=== PATIENT | male | born 1935 | race Caucasian/White ===

== ENCOUNTER 2018-02-04 09:53 | Inpatient (IN) ==
[2018-02-04] MEDS ORDERED: SODIUM CHLORIDE 0.9% 1,000 ML IV STA (10:31)
[2018-02-04] MEDS ORDERED: LORazepam 2 MG/1 ML VIAL IV STA (10:34)
[2018-02-04 11:08] LABS: Basophils # 0.1 10*3/uL (0.0-0.2); Basophils % 0.8 % (0.0-0.8); Eosinophils # 0.1 10*3/uL (0.0-0.87); Eosinophils % 0.4 % (0.00-10.9); Hematocrit 40.7 VOL% (42.0-52.0); Hemoglobin 11.6 GM/DL (14.0-18.0); Immature Granulocytes % 0.7 %; Immature Granulocytes Absolute 0.08 #; Lymphocytes # 1.6 10*3/uL (1.4-4.0); Lymphocytes % 13.8 % (21.2-54.2); Mean Corpuscular HGB Conc 28.5 GM/DL (32-36); Mean Corpuscular Hemoglobin 22 PG (27-34); Mean Platelet Volume 10.3 FL (9.6-12.0); Neutrophils # 8.7 10*3/uL (1.4-7.4); Neutrophils % 75.3 % (38.7-73.9); Platelet Count 344 T/CUMM (130-400); Red Blood Count 5.22 MC/CUMM (3.8-5.5); Red Cell Distribution Width 17.1 % (9.3-17.3); White Blood Count 11.5 T/CUMM (4-12)
[2018-02-04 11:25] LABS: Albumin 3.5 G/DL (3.4-5.0); Bilirubin,Total 0.4 MG/DL (0.2-1.0); Calcium 8.1 MG/DL (8.5-10.1); Osmolality,Calculated 286.8 MOS/KG (273-304); Potassium 3.9 MMOL/L (3.5-5.1); Total Protein 6.8 G/DL (6.4-8.3)
[2018-02-04 11:27] LABS: Apearance,Urine CLEAR (Clear); Bilirubin,Urine Negative (Negative); Blood, Urine Negative (Negative); Glucose,Urine (UA) Negative (Negative); Hyaline Casts,Urine 4 /LPF (0-3); Ketones,Urine Negative (Negative); Mucus,Urine Occasional /LPF (Occasional); Nitrite,Urine Negative (Negative); Protein,Urine Negative; RBC,Urine 2 /HPF (0-4); Urine Color Yellow (Yellow); Urine Specific Gravity 1.016 (1.001-1.035); Urine Urobilinogen < 2.0 EU/DL (0.2-1.0); WBC,Urine 1 /HPF (0-6)
[2018-02-04 11:51] LABS: Elliptocytes Few
[2018-02-04 11:52] LABS: Hypochromasia Slight; Microcytosis Slight; Platelet Estimate Adequate
[2018-02-04] MEDS ORDERED: HALOPERIDOL 5 MG/ML AMP IV PRN (13:28)
[2018-02-04] MEDS ORDERED: levETIRAcetam 500 MG TABLET PO SCH (13:30)
[2018-02-04] MEDS ORDERED: GLUCAGON 1 MG VIAL IM PRN (13:33)
[2018-02-04] MEDS ORDERED: DEXTROSE 50% 25 GM/50 ML VIAL IV PRN (13:33)
[2018-02-04] MEDS: SODIUM CHLORIDE 0.9% 1,000 ML IV SCH (15:30)
[2018-02-04 15:55] LABS: Calcium 7.9 MG/DL (8.5-10.1); Osmolality,Calculated 287.7 MOS/KG (273-304); Potassium 3.9 MMOL/L (3.5-5.1)
[2018-02-04] MEDS: INSULIN LISPRO 100 UNIT/ML SUBCUT SCH ×2 (16:31→21:55)
[2018-02-04] MEDS: LORazepam 2 MG/1 ML VIAL IV PRN (16:33)
[2018-02-04] MEDS: ASPIRIN EC 81 MG TABLET PO SCH (16:35)
[2018-02-04] MEDS: ALBUTEROL/IPRATROPIUM 3 ML NEB RESP TX SCH (19:53)
[2018-02-04] MEDS ORDERED: Eslicarbazepine Acetate [Aptiom] 800 MG PO SCH (21:00)
[2018-02-04] MEDS: EZETIMIBE 10 MG TABLET PO SCH (21:55)
[2018-02-05] MEDS: ALBUTEROL/IPRATROPIUM 3 ML NEB RESP TX SCH ×4 (01:00→20:26)
[2018-02-05] MEDS: LORazepam 2 MG/1 ML VIAL IV PRN (01:36)
[2018-02-05 08:06] LABS: Basophils % 0.3 % (0.0-0.8); Eosinophils % 0.2 % (0.00-10.9); Hematocrit 39.7 VOL% (42.0-52.0); Immature Granulocytes % 0.8 %; Lymphocytes # 1.5 10*3/uL (1.4-4.0); Lymphocytes % 12.2 % (21.2-54.2); Mean Corpuscular Hemoglobin 23 PG (27-34); Mean Corpuscular Volume 78.8 FL (87-102); Mean Platelet Volume 10.1 FL (9.6-12.0); Monocytes # 1.3 10*3/uL (0.11-0.8); Monocytes % 10.6 % (1.7-12.7); Neutrophils # 9.1 10*3/uL (1.4-7.4); Neutrophils % 75.9 % (38.7-73.9); Platelet Count 319 T/CUMM (130-400); Red Blood Count 5.04 MC/CUMM (3.8-5.5); Red Cell Distribution Width 17.2 % (9.3-17.3)
[2018-02-05 08:10] LABS: Hemoglobin 11.5 GM/DL (14.0-18.0)
[2018-02-05] MEDS: SIMVASTATIN 20 MG TABLET PO SCH (09:35)
[2018-02-05] MEDS: MULTIVITAMIN (CENTRUM) TABLET PO SCH (09:35)
[2018-02-05] MEDS: CARVEDILOL 3.125 MG TABLET PO SCH (09:35)
[2018-02-05] MEDS: INSULIN LISPRO 100 UNIT/ML SUBCUT SCH ×4 (09:36→21:10)
[2018-02-05] MEDS: CLOPIDOGREL 75 MG TABLET PO SCH (09:36)
[2018-02-05] MEDS: VALSARTAN 160 MG TABLET PO SCH (09:36)
[2018-02-05] MEDS: SODIUM CHLORIDE 0.9% 1,000 ML IV SCH (09:43)
[2018-02-05 11:00] LABS: Folate 22.7 NG/ML (5.4-24.0)
[2018-02-05] MEDS ORDERED: TUBERCULIN SKIN TEST 0.1 ML SYRINGE INTRADERM ONE (15:17)
[2018-02-05] MEDS: amLODIPine 5 MG TABLET PO SCH (16:09)
[2018-02-05] MEDS: levETIRAcetam 250 MG TABLET PO SCH (21:09)
[2018-02-05] MEDS: EZETIMIBE 10 MG TABLET PO SCH (21:09)
[2018-02-06] MEDS: ALBUTEROL/IPRATROPIUM 3 ML NEB RESP TX SCH ×3 (01:09→13:25)
[2018-02-06] MEDS ORDERED: BISACODYL 10 MG SUPP RECTAL ONE (02:48)
[2018-02-06] MEDS ORDERED: LACTULOSE 20 GM/30 ML UDCUP PO PRN (02:49)
[2018-02-06] MEDS ORDERED: MAGNESIUM SULF RIDER 1 GM in PREMIX 1 EACH IV ONE (05:03)
[2018-02-06] MEDS ORDERED: AMIODARONE 150 MG/3 ML VIAL IV ONE (08:00)
[2018-02-06] MEDS: INSULIN LISPRO 100 UNIT/ML SUBCUT SCH ×4 (08:22→21:31)
[2018-02-06] MEDS: VALSARTAN 160 MG TABLET PO SCH (09:52)
[2018-02-06] MEDS: amLODIPine 5 MG TABLET PO SCH ×2 (09:52→21:31)
[2018-02-06] MEDS: MULTIVITAMIN (CENTRUM) TABLET PO SCH (09:52)
[2018-02-06] MEDS: CLOPIDOGREL 75 MG TABLET PO SCH (09:52)
[2018-02-06] MEDS: levETIRAcetam 250 MG TABLET PO SCH ×2 (09:52→21:31)
[2018-02-06] MEDS: CARVEDILOL 3.125 MG TABLET PO SCH (09:53)
[2018-02-06] MEDS: SIMVASTATIN 20 MG TABLET PO SCH (09:53)
[2018-02-06] MEDS: ASPIRIN EC 81 MG TABLET PO SCH (09:53)
[2018-02-06 13:41] LABS: Calcium 8.7 MG/DL (8.5-10.1); Potassium 4.3 MMOL/L (3.5-5.1)
[2018-02-06 13:43] LABS: Basophils # 0.1 10*3/uL (0.0-0.2); Basophils % 0.3 % (0.0-0.8); Eosinophils % 0.1 % (0.00-10.9); Hematocrit 43.5 VOL% (42.0-52.0); Hemoglobin 12.5 GM/DL (14.0-18.0); Immature Granulocytes % 0.8 %; Immature Granulocytes Absolute 0.19 #; Lymphocytes # 0.9 10*3/uL (1.4-4.0); Lymphocytes % 3.8 % (21.2-54.2); Mean Corpuscular HGB Conc 28.7 GM/DL (32-36); Mean Corpuscular Hemoglobin 23 PG (27-34); Mean Corpuscular Volume 79.4 FL (87-102); Monocytes # 1.4 10*3/uL (0.11-0.8); Monocytes % 6.2 % (1.7-12.7); Neutrophils # 20.5 10*3/uL (1.4-7.4); Neutrophils % 88.8 % (38.7-73.9); Platelet Count 342 T/CUMM (130-400); Red Blood Count 5.48 MC/CUMM (3.8-5.5); Red Cell Distribution Width 17.5 % (9.3-17.3); White Blood Count 23.1 T/CUMM (4-12)
[2018-02-06 17:42] LABS: Band Neutrophils 9 % (0-10); Lymphocytes 2 % (20-55); Segmented Neutrophils 78 % (50-85); Total Cells Counted 100
[2018-02-06 17:44] LABS: Anisocytosis 1+; Hypochromasia 1+; Ovalocytes Few; Poikilocytosis 1+; Polychromasia Slight
[2018-02-06 17:45] LABS: Platelet Estimate Increased; Stomatocytes Few
[2018-02-06] MEDS ORDERED: ALBUTEROL 2.5 MG/3 ML NEB RESP TX SCH (19:00)
[2018-02-06] MEDS: LEVALBUTEROL 1.25 MG/3 ML NEB RESP TX SCH (19:29)
[2018-02-06] MEDS ORDERED: CARVEDILOL 3.125 MG TABLET PO SCH (21:00)
[2018-02-06] MEDS: CARVEDILOL 6.25 MG TABLET PO SCH (21:31)
[2018-02-06] MEDS: EZETIMIBE 10 MG TABLET PO SCH (21:32)
[2018-02-07] MEDS: LEVALBUTEROL 1.25 MG/3 ML NEB RESP TX SCH ×4 (01:16→19:15)
[2018-02-07 05:11] LABS: Basophils # 0.1 10*3/uL (0.0-0.2); Basophils % 0.4 % (0.0-0.8); Eosinophils # 0.3 10*3/uL (0.0-0.87); Immature Granulocytes % 0.4 %; Immature Granulocytes Absolute 0.07 #; Lymphocytes # 1.3 10*3/uL (1.4-4.0); Lymphocytes % 7.8 % (21.2-54.2); Mean Corpuscular HGB Conc 29.1 GM/DL (32-36); Mean Corpuscular Hemoglobin 23 PG (27-34); Mean Corpuscular Volume 77.8 FL (87-102); Mean Platelet Volume 10.9 FL (9.6-12.0); Monocytes # 1.3 10*3/uL (0.11-0.8); Monocytes % 8.2 % (1.7-12.7); Neutrophils # 13.2 10*3/uL (1.4-7.4); Neutrophils % 81.2 % (38.7-73.9); Platelet Count 283 T/CUMM (130-400); Red Blood Count 4.51 MC/CUMM (3.8-5.5); Red Cell Distribution Width 17.2 % (9.3-17.3); White Blood Count 16.2 T/CUMM (4-12)
[2018-02-07 05:21] LABS: Hemoglobin 10.4 GM/DL (14.0-18.0)
[2018-02-07 05:28] LABS: Calcium 8.3 MG/DL (8.5-10.1); Potassium 3.7 MMOL/L (3.5-5.1)
[2018-02-07] MEDS: MULTIVITAMIN (CENTRUM) TABLET PO SCH (09:21)
[2018-02-07] MEDS: amLODIPine 5 MG TABLET PO SCH ×2 (09:21→20:45)
[2018-02-07] MEDS: levETIRAcetam 250 MG TABLET PO SCH ×2 (09:22→20:45)
[2018-02-07] MEDS: CARVEDILOL 6.25 MG TABLET PO SCH (09:23)
[2018-02-07] MEDS: SIMVASTATIN 20 MG TABLET PO SCH (09:23)
[2018-02-07] MEDS: CLOPIDOGREL 75 MG TABLET PO SCH (09:23)
[2018-02-07] MEDS: VALSARTAN 160 MG TABLET PO SCH (09:25)
[2018-02-07] MEDS: ASPIRIN EC 81 MG TABLET PO SCH (09:25)
[2018-02-07] MEDS: INSULIN LISPRO 100 UNIT/ML SUBCUT SCH ×4 (10:00→20:44)
[2018-02-07] MEDS: CARVEDILOL 12.5 MG TABLET PO SCH ×2 (10:54→20:43)
[2018-02-07] MEDS ORDERED: ENOXAPARIN 40 MG/0.4 ML SYRINGE SUBCUT SCH (13:30)
[2018-02-07] MEDS: EZETIMIBE 10 MG TABLET PO SCH (20:46)
[2018-02-07] MEDS ORDERED: ATORVASTATIN 40 MG TABLET PO SCH (21:00)
[2018-02-08] MEDS: LEVALBUTEROL 1.25 MG/3 ML NEB RESP TX SCH ×2 (01:51→10:22)
[2018-02-08] MEDS: INSULIN LISPRO 100 UNIT/ML SUBCUT SCH ×2 (07:43→12:26)
[2018-02-08] MEDS: MULTIVITAMIN (CENTRUM) TABLET PO SCH (08:08)
[2018-02-08] MEDS: VALSARTAN 160 MG TABLET PO SCH (08:08)
[2018-02-08] MEDS: amLODIPine 5 MG TABLET PO SCH (08:09)
[2018-02-08] MEDS: ASPIRIN EC 81 MG TABLET PO SCH (08:09)
[2018-02-08] MEDS: CLOPIDOGREL 75 MG TABLET PO SCH (08:09)
[2018-02-08] MEDS: CARVEDILOL 12.5 MG TABLET PO SCH (08:09)
[2018-02-08] MEDS: levETIRAcetam 250 MG TABLET PO SCH (08:26)
[2018-02-08] MEDS ORDERED: ACETAMINOPHEN 325 MG TABLET PO ONE (11:24)
[2018-02-08 12:16] VITALS: BP 125/58
== END 2018-02-08 12:35 | DRG 100 ==
LOC: N.ED 09:53 → N.EDINP 12:36 → SUATTDRO 12:36 → N.EDINP 14:27 → N.4E 14:39 → N.TELES 02-06 07:43
PROVIDERS: ADMIT Internal Medicine; ATTEND Internal Medicine Infectious Disease

== ENCOUNTER 2018-10-17 00:32 | Inpatient (IN) ==
[2018-10-17 01:27] LABS: Basophils # 0.1 10*3/uL (0.0-0.2); Basophils % 0.8 % (0.0-0.8); Eosinophils # 0.2 10*3/uL (0.0-0.87); Eosinophils % 2.4 % (0.00-10.9); Immature Granulocytes % 0.8 %; Immature Granulocytes Absolute 0.07 #; Lymphocytes # 1.3 10*3/uL (1.4-4.0); Lymphocytes % 15.3 % (21.2-54.2); Mean Corpuscular HGB Conc 30.1 GM/DL (32-36); Mean Platelet Volume 10.2 FL (9.6-12.0); Neutrophils % 72.7 % (38.7-73.9); Platelet Count 268 T/CUMM (130-400); Red Blood Count 5.39 MC/CUMM (3.8-5.5); Red Cell Distribution Width 14.6 % (9.3-17.3); White Blood Count 8.8 T/CUMM (4-12)
[2018-10-17 01:34] LABS: Hematocrit 46.7 VOL% (42.0-52.0); Hemoglobin 14.1 GM/DL (14.0-18.0)
[2018-10-17 01:46] LABS: Calcium 8.5 MG/DL (8.5-10.1)
[2018-10-17] MEDS ORDERED: ACETAMINOPHEN 325 MG TABLET PO PRN (02:42)
[2018-10-17] MEDS ORDERED: ONDANSETRON 4 MG/2 ML VIAL IV PRN (02:42)
[2018-10-17] MEDS ORDERED: NICOTINE 21 MG/24 HR PATCH TRANSDERM PRN (02:42)
[2018-10-17] MEDS ORDERED: SODIUM CHLORIDE 0.9% 500 ML IV STA (03:58)
[2018-10-17 04:11] LABS: Apearance,Urine CLEAR (Clear); Bilirubin,Urine Negative (Negative); Blood, Urine Negative (Negative); Glucose,Urine (UA) Negative (Negative); Hyaline Casts,Urine 3 /LPF (0-3); Ketones,Urine Negative (Negative); Mucus,Urine Occasional /LPF (Occasional); Nitrite,Urine Negative (Negative); Protein,Urine Negative; RBC,Urine <1 /HPF (0-4); Urine Color Yellow (Yellow); Urine Specific Gravity 1.017 (1.001-1.035); Urine Urobilinogen < 2.0 EU/DL (0.2-1.0); WBC,Urine <1 /HPF (0-6)
[2018-10-17 04:11] LABS: Thyroid Stimulating Hormone 2.3 uIU/ml (0.358-3.74)
[2018-10-17] MEDS: SODIUM CHLORIDE 0.9% 1,000 ML IV SCH ×2 (04:25→17:50)
[2018-10-17] MEDS: CLINDAMYCIN 300 MG CAPSULE PO SCH ×4 (05:46→23:06)
[2018-10-17] MEDS ORDERED: DEXTROSE 50% 25 GM/50 ML VIAL IV PRN (05:56)
[2018-10-17] MEDS ORDERED: GLUCAGON 1 MG VIAL IM PRN (05:56)
[2018-10-17] MEDS ORDERED: LACOSAMIDE 50 MG TABLET PO SCH (09:00)
[2018-10-17] MEDS ORDERED: ESLICARBAZEPINE 800 MG PO SCH (09:00)
[2018-10-17] MEDS ORDERED: DIVALPROEX ER 500 MG TABLET PO SCH (09:00)
[2018-10-17] MEDS: INSULIN REGULAR 100 UNIT/ML SUBCUT SCH ×4 (09:41→20:42)
[2018-10-17] MEDS: CARBIDOPA/LEVODOPA 25-100 MG TABLET PO SCH ×3 (09:41→16:00)
[2018-10-17] MEDS: sitaGLIPtin 25 MG TABLET PO SCH (10:14)
[2018-10-17] MEDS: CITALOPRAM 20 MG TABLET PO SCH (10:15)
[2018-10-17] MEDS: ASPIRIN EC 81 MG TABLET PO SCH (10:15)
[2018-10-17] MEDS: FUROSEMIDE 20 MG TABLET PO SCH (10:15)
[2018-10-17] MEDS: CLOPIDOGREL 75 MG TABLET PO SCH (10:15)
[2018-10-17] MEDS: MULTIVITAMIN (CENTRUM) TABLET PO SCH (10:15)
[2018-10-17] MEDS: amLODIPine 5 MG TABLET PO SCH ×2 (10:15→20:38)
[2018-10-17] MEDS: CARVEDILOL 3.125 MG TABLET PO SCH (10:16)
[2018-10-17] MEDS: SIMVASTATIN 20 MG TABLET PO SCH (10:16)
[2018-10-17] MEDS: VALSARTAN 160 MG TABLET PO SCH (10:17)
[2018-10-17] MEDS ORDERED: DIVALPROEX ER 250 MG TABLET PO SCH (16:17)
[2018-10-17] MEDS: levETIRAcetam 500 MG TABLET PO SCH (20:39)
[2018-10-17] MEDS: DIVALPROEX 250 MG TABLET PO SCH (20:39)
[2018-10-17] MEDS ORDERED: EZETIMIBE 10 MG TABLET PO SCH (21:00)
[2018-10-18 05:04] LABS: Basophils # 0.1 10*3/uL (0.0-0.2); Basophils % 0.8 % (0.0-0.8); Eosinophils # 0.3 10*3/uL (0.0-0.87); Eosinophils % 4.2 % (0.00-10.9); Hemoglobin 12.9 GM/DL (14.0-18.0); Immature Granulocytes % 0.4 %; Immature Granulocytes Absolute 0.03 #; Lymphocytes # 2.5 10*3/uL (1.4-4.0); Lymphocytes % 31.9 % (21.2-54.2); Mean Corpuscular HGB Conc 30.7 GM/DL (32-36); Mean Corpuscular Volume 87.5 FL (87-102); Monocytes % 9.1 % (1.7-12.7); Neutrophils % 53.6 % (38.7-73.9); Platelet Count 226 T/CUMM (130-400); Red Cell Distribution Width 14.7 % (9.3-17.3); White Blood Count 7.9 T/CUMM (4-12)
[2018-10-18 05:15] LABS: Calcium 8.2 MG/DL (8.5-10.1); Osmolality,Calculated 288.7 MOS/KG (273-304)
[2018-10-18] MEDS: CLINDAMYCIN 300 MG CAPSULE PO SCH ×2 (06:10→12:45)
[2018-10-18] MEDS: CARBIDOPA/LEVODOPA 25-100 MG TABLET PO SCH ×2 (06:10→12:45)
[2018-10-18] MEDS: SODIUM CHLORIDE 0.9% 1,000 ML IV SCH (06:47)
[2018-10-18] MEDS: INSULIN REGULAR 100 UNIT/ML SUBCUT SCH ×2 (08:24→13:04)
[2018-10-18] MEDS: DIVALPROEX 250 MG TABLET PO SCH (11:14)
[2018-10-18] MEDS: ASPIRIN EC 81 MG TABLET PO SCH (11:14)
[2018-10-18] MEDS: MULTIVITAMIN (CENTRUM) TABLET PO SCH (11:14)
[2018-10-18] MEDS: sitaGLIPtin 25 MG TABLET PO SCH (11:14)
[2018-10-18] MEDS: CLOPIDOGREL 75 MG TABLET PO SCH (11:14)
[2018-10-18] MEDS: VALSARTAN 160 MG TABLET PO SCH (11:14)
[2018-10-18] MEDS: CARVEDILOL 3.125 MG TABLET PO SCH (11:14)
[2018-10-18] MEDS: FUROSEMIDE 20 MG TABLET PO SCH (11:15)
[2018-10-18] MEDS: amLODIPine 5 MG TABLET PO SCH (11:15)
[2018-10-18] MEDS: SIMVASTATIN 20 MG TABLET PO SCH (11:15)
[2018-10-18] MEDS: levETIRAcetam 500 MG TABLET PO SCH (11:15)
[2018-10-18] MEDS: CITALOPRAM 20 MG TABLET PO SCH (11:15)
[2018-10-18 16:17] VITALS: BP 129/63
== END 2018-10-18 16:42 | DRG 101 ==
LOC: EDUNIT# → EDBD → N.EDINP 00:32 → N.ED 00:32 → N.4E 03:47
PROVIDERS: ADMIT Family Medicine; ATTEND Family Medicine

== ENCOUNTER 2019-01-20 10:42 | Inpatient (IN) ==
[2019-01-20 11:48] LABS: Basophils % 0.3 % (0.0-0.8); Eosinophils # 0.1 10*3/uL (0.0-0.87); Eosinophils % 1.2 % (0.00-10.9); Hematocrit 41.3 VOL% (42.0-52.0); Hemoglobin 13.9 GM/DL (14.0-18.0); Immature Granulocytes % 0.5 %; Immature Granulocytes Absolute 0.05 #; Lymphocytes # 1.4 10*3/uL (1.4-4.0); Lymphocytes % 12.7 % (21.2-54.2); Mean Corpuscular HGB Conc 33.7 GM/DL (32-36); Mean Corpuscular Volume 84.8 FL (87-102); Mean Platelet Volume 9.3 FL (9.6-12.0); Monocytes % 7.3 % (1.7-12.7); Platelet Count 243 T/CUMM (130-400); Red Blood Count 4.87 MC/CUMM (3.8-5.5); Red Cell Distribution Width 13.3 % (9.3-17.3); White Blood Count 10.7 T/CUMM (4-12)
[2019-01-20 12:21] LABS: Alanine Aminotransferase 29 U/L (16-61); Albumin 3.5 G/DL (3.4-5.0); Alkaline Phosphatase 92 U/L (45-117); Aspartate Amino Transferase 42 U/L (0-37); Blood Urea Nitrogen 16 MG/DL (7-18); Calcium 8.4 MG/DL (8.5-10.1); Estimated Glom Filtration Rate 87 ML/MIN; Glucose 133 MG/DL (74-106); Osmolality,Calculated 255.4 MOS/KG (273-304); Total Protein 6.9 G/DL (6.4-8.3); Troponin I < 0.015 NG/ML (0.00-0.045)
[2019-01-20] MEDS ORDERED: ORPHENADRINE 60 MG/2 ML VIAL IV STA (12:53)
[2019-01-20 13:31] LABS: Apearance,Urine CLEAR (Clear); Bilirubin,Urine Negative (Negative); Blood, Urine Negative (Negative); Glucose,Urine (UA) Negative (Negative); Ketones,Urine Negative (Negative); Mucus,Urine Occasional /LPF (Occasional); Nitrite,Urine Negative (Negative); Protein,Urine Negative; RBC,Urine 2 /HPF (0-4); Urine Color Yellow (Yellow); Urine Specific Gravity 1.012 (1.001-1.035); Urine Urobilinogen < 2.0 EU/DL (0.2-1.0); WBC,Urine <1 /HPF (0-6)
[2019-01-20] MEDS ORDERED: ONDANSETRON 4 MG/2 ML VIAL IV PRN (13:58)
[2019-01-20] MEDS ORDERED: BISACODYL 5 MG TABLET PO PRN (13:58)
[2019-01-20] MEDS ORDERED: ACETAMINOPHEN 325 MG TABLET PO PRN (13:58)
[2019-01-20] MEDS ORDERED: LORazepam 2 MG/1 ML VIAL IV PRN (14:03)
[2019-01-20] MEDS ORDERED: DEXTROSE 50% 25 GM/50 ML VIAL IV PRN (14:04)
[2019-01-20] MEDS ORDERED: GLUCAGON 1 MG VIAL IM PRN (14:04)
[2019-01-20] MEDS ORDERED: ALBUTEROL/IPRATROPIUM 3 ML NEB RESP TX SCH (14:30)
[2019-01-20 14:31] LABS: Risk Ratio 2.8; Thyroid Stimulating Hormone 1.29 uIU/ml (0.358-3.74)
[2019-01-20] MEDS: INSULIN REGULAR 100 UNIT/ML SUBCUT SCH ×2 (17:10→21:42)
[2019-01-20] MEDS: SODIUM CHLORIDE 0.9% 1,000 ML IV SCH (18:05)
[2019-01-20] MEDS: OLANZapine 2.5 MG TABLET PO SCH ×2 (18:05→21:42)
[2019-01-20] MEDS: ALBUTEROL/IPRATROPIUM 3 ML NEB RESP TX SCH (19:25)
[2019-01-20] MEDS ORDERED: EZETIMIBE 10 MG TABLET PO SCH (21:00)
[2019-01-20] MEDS: ENOXAPARIN 40 MG/0.4 ML SYRINGE SUBCUT SCH (21:41)
[2019-01-20] MEDS: levETIRAcetam 500 MG TABLET PO SCH (21:41)
[2019-01-21] MEDS: ALBUTEROL/IPRATROPIUM 3 ML NEB RESP TX SCH ×4 (01:22→19:57)
[2019-01-21 05:59] LABS: Calcium 8.3 MG/DL (8.5-10.1); Osmolality,Calculated 260.8 MOS/KG (273-304)
[2019-01-21 07:52] LABS: Basophils % 0.2 % (0.0-0.8); Eosinophils # 0.2 10*3/uL (0.0-0.87); Eosinophils % 1.7 % (0.00-10.9); Hematocrit 39.4 VOL% (42.0-52.0); Hemoglobin 13.3 GM/DL (14.0-18.0); Immature Granulocytes % 0.7 %; Immature Granulocytes Absolute 0.08 #; Lymphocytes # 1.7 10*3/uL (1.4-4.0); Lymphocytes % 13.8 % (21.2-54.2); Mean Corpuscular HGB Conc 33.8 GM/DL (32-36); Mean Corpuscular Volume 85.3 FL (87-102); Mean Platelet Volume 9.8 FL (9.6-12.0); Neutrophils % 72.6 % (38.7-73.9); Platelet Count 243 T/CUMM (130-400); Red Blood Count 4.62 MC/CUMM (3.8-5.5); Red Cell Distribution Width 13.4 % (9.3-17.3); White Blood Count 12.1 T/CUMM (4-12)
[2019-01-21] MEDS: SODIUM CHLORIDE 0.9% 1,000 ML IV SCH ×2 (09:15→20:38)
[2019-01-21] MEDS: INSULIN REGULAR 100 UNIT/ML SUBCUT SCH ×4 (09:17→20:34)
[2019-01-21] MEDS: VALSARTAN 160 MG TABLET PO SCH (09:18)
[2019-01-21] MEDS: MULTIVITAMIN (CENTRUM) TABLET PO SCH (09:18)
[2019-01-21] MEDS: CLOPIDOGREL 75 MG TABLET PO SCH (09:18)
[2019-01-21] MEDS: ASPIRIN EC 81 MG TABLET PO SCH (09:18)
[2019-01-21] MEDS: levETIRAcetam 500 MG TABLET PO SCH ×2 (09:18→20:38)
[2019-01-21] MEDS: carvediloL 3.125 MG TABLET PO SCH (09:18)
[2019-01-21] MEDS: PANTOPRAZOLE 40 MG TABLET PO SCH (09:19)
[2019-01-21] MEDS: OLANZapine 2.5 MG TABLET PO SCH ×2 (17:15→20:34)
[2019-01-21] MEDS: ENOXAPARIN 40 MG/0.4 ML SYRINGE SUBCUT SCH (20:38)
[2019-01-21] MEDS ORDERED: HALOPERIDOL 5 MG/ML AMP IM ONE (21:55)
[2019-01-21] MEDS ORDERED: LORazepam 2 MG/1 ML VIAL IM ONE (21:55)
[2019-01-22] MEDS: ALBUTEROL/IPRATROPIUM 3 ML NEB RESP TX SCH ×5 (02:18→19:51)
[2019-01-22 06:21] LABS: Basophils # 0.1 10*3/uL (0.0-0.2); Basophils % 0.5 % (0.0-0.8); Eosinophils # 0.3 10*3/uL (0.0-0.87); Eosinophils % 2.9 % (0.00-10.9); Hematocrit 38.3 VOL% (42.0-52.0); Hemoglobin 12.6 GM/DL (14.0-18.0); Immature Granulocytes % 0.5 %; Immature Granulocytes Absolute 0.05 #; Lymphocytes # 1.9 10*3/uL (1.4-4.0); Lymphocytes % 17.9 % (21.2-54.2); Mean Corpuscular HGB Conc 32.9 GM/DL (32-36); Mean Corpuscular Volume 86.8 FL (87-102); Mean Platelet Volume 9.9 FL (9.6-12.0); Monocytes % 10.6 % (1.7-12.7); Neutrophils % 67.6 % (38.7-73.9); Platelet Count 247 T/CUMM (130-400); Red Blood Count 4.41 MC/CUMM (3.8-5.5); Red Cell Distribution Width 13.6 % (9.3-17.3); White Blood Count 10.4 T/CUMM (4-12)
[2019-01-22 06:44] LABS: Calcium 8.4 MG/DL (8.5-10.1); Osmolality,Calculated 269.2 MOS/KG (273-304)
[2019-01-22] MEDS: INSULIN REGULAR 100 UNIT/ML SUBCUT SCH ×4 (07:51→21:03)
[2019-01-22] MEDS: VALSARTAN 160 MG TABLET PO SCH (08:18)
[2019-01-22] MEDS: CLOPIDOGREL 75 MG TABLET PO SCH (08:18)
[2019-01-22] MEDS: carvediloL 3.125 MG TABLET PO SCH (08:18)
[2019-01-22] MEDS: ASPIRIN EC 81 MG TABLET PO SCH (08:19)
[2019-01-22] MEDS: MULTIVITAMIN (CENTRUM) TABLET PO SCH (08:19)
[2019-01-22] MEDS: levETIRAcetam 500 MG TABLET PO SCH ×2 (08:19→20:49)
[2019-01-22] MEDS: PANTOPRAZOLE 40 MG TABLET PO SCH (08:19)
[2019-01-22] MEDS ORDERED: HALOPERIDOL 5 MG TABLET PO PRN (09:38)
[2019-01-22] MEDS: LORATADINE 10 MG TABLET PO SCH (11:14)
[2019-01-22 15:46] LABS: Levetiracetam (Keppra) 24.5 mcg/mL
[2019-01-22] MEDS: ENOXAPARIN 40 MG/0.4 ML SYRINGE SUBCUT SCH (20:49)
[2019-01-22] MEDS ORDERED: QUEtiapine 25 MG TABLET PO SCH (21:00)
[2019-01-23] MEDS: ALBUTEROL/IPRATROPIUM 3 ML NEB RESP TX SCH ×2 (00:05→07:54)
[2019-01-23 04:51] LABS: Basophils # 0.1 10*3/uL (0.0-0.2); Basophils % 0.6 % (0.0-0.8); Eosinophils # 0.4 10*3/uL (0.0-0.87); Eosinophils % 4.7 % (0.00-10.9); Hemoglobin 12.7 GM/DL (14.0-18.0); Immature Granulocytes % 0.2 %; Immature Granulocytes Absolute 0.02 #; Lymphocytes # 2.1 10*3/uL (1.4-4.0); Lymphocytes % 26.4 % (21.2-54.2); Mean Corpuscular HGB Conc 31.8 GM/DL (32-36); Mean Corpuscular Volume 88.5 FL (87-102); Mean Platelet Volume 9.8 FL (9.6-12.0); Monocytes % 10.7 % (1.7-12.7); Neutrophils % 57.4 % (38.7-73.9); Platelet Count 265 T/CUMM (130-400); Red Blood Count 4.52 MC/CUMM (3.8-5.5); White Blood Count 8.1 T/CUMM (4-12)
[2019-01-23 05:00] LABS: Calcium 8.6 MG/DL (8.5-10.1)
[2019-01-23] MEDS ORDERED: TUBERCULIN SKIN TEST 0.1 ML SYRINGE INTRADERM ONE (08:53)
[2019-01-23] MEDS: ASPIRIN EC 81 MG TABLET PO SCH (09:59)
[2019-01-23] MEDS: VALSARTAN 160 MG TABLET PO SCH (09:59)
[2019-01-23] MEDS: CLOPIDOGREL 75 MG TABLET PO SCH (10:00)
[2019-01-23] MEDS: PANTOPRAZOLE 40 MG TABLET PO SCH (10:00)
[2019-01-23] MEDS: MULTIVITAMIN (CENTRUM) TABLET PO SCH (10:01)
[2019-01-23] MEDS: carvediloL 3.125 MG TABLET PO SCH (10:01)
[2019-01-23] MEDS: levETIRAcetam 500 MG TABLET PO SCH (10:02)
[2019-01-23] MEDS: LORATADINE 10 MG TABLET PO SCH (10:02)
[2019-01-23] MEDS: INSULIN REGULAR 100 UNIT/ML SUBCUT SCH ×2 (11:56→12:12)
[2019-01-23 12:28] VITALS: BP 127/64
== END 2019-01-23 15:10 | disposition swing bed (61) | DRG 57 ==
LOC: EDUNIT# → EDBD → N.ED 10:42 → N.EDINP 13:58 → N.4E 15:59
PROVIDERS: ADMIT Internal Medicine Geriatric Medicine; ATTEND Internal Medicine Geriatric Medicine